=== PATIENT | female | born 1960 | race Caucasian/White ===

== ENCOUNTER 2017-06-25 10:51 | Emergency (ER) | payer OTHER, SELFPAY ==
[~2017-06-25] VITALS: Ht 177.8 cm; Wt 81.6 kg
[2017-06-25] MEDS ORDERED: DECADRON IH STA (11:24)
[2017-06-25] MEDS ORDERED: DUONEB 0.5 MG-3 MG/3 ML SOLN IH STA (11:24)
[2017-06-25] MEDS ORDERED: SOLU-MEDROL IM STA (11:24)
[2017-06-25] MEDS ORDERED: DUONEB 0.5 MG-3 MG/3 ML SOLN IH ONE (11:26)
[2017-06-25] MEDS ORDERED: DECADRON ONE (11:26)
--- NOTE | 2017-06-25 11:27 | ER.PDOC ---
General Chief Complaint: Cough/Congestion Stated Complaint: COUGH,CONGESTION,EAR ACHE,FEVER,DIARREAH Time seen by MD: 11:26 Source: patient Exam Limitations: no limitations History of Present Illness Initial Comments Cough, congestion and earache for 1 week Timing/Duration: gradual Severity: moderate Associated Symptoms: earache, runny nose, cough Allergies: Coded Allergies: Penicillins (Verified Allergy, Unknown, Unknown, 06/25/17) aspirin (Verified Allergy, Unknown, unknown, 06/25/17) Constitutional: no symptoms reported EENTM: see HPI Respiratory: see HPI Cardiovascular: no symptoms reported Gastrointestinal: diarrhea Genitourinary: no symptoms reported All Other Systems: Reviewed and Negative Past Medical History Medical History: no pertinent history Surgical History: appendectomy LMP (females 10-50): postmenopause Social History Smoking: non-smoker Alcohol Use: none Drug Use: none Physical Exam General Appearance: alert, no distress Ear: ear nml Nose: rhinorrhea Neck: nml inspection, supple Respiratory: no resp.distress, breath sounds nml Abdomen: non-tender, no organomegaly CVS: reg rate & rhythm, heart sounds nml Extremities: non-tender, nml ROM, no pedal edema NEURO/PSYCH: oriented x 3, CN's nml as tested, motor nml, sensation nml, mood/ affect nml Results/Orders Results/Orders Laboratory Tests Test 06/25/17 11:33 White Blood Count 8.3 10^3/uL (4.5-11.0) Red Blood Count 4.66 10^6/uL (4.00-5.20) Hemoglobin 13.2 g/dL (12.0-15.0) Hematocrit 40.4 % (36.0-46.0) Mean Corpuscular Volume 86.7 fL (78-100) Mean Corpuscular Hemoglobin 28.3 pg (26-34) Mean Corpuscular Hemoglobin Concent 32.7 g/dL (33-37) Red Cell Distribution Width 13.8 % (11.5-14.5) Platelet Count 124 10^3/uL (150-400) Mean Platelet Volume 10.2 fL (7.8-11.0) Neutrophils (%) (Auto) 77.4 % (41.0-85.0) Lymphocytes (%) (Auto) 13.7 % (24.0-44.0) Monocytes (%) (Auto) 8.6 % (5.0-12.0) Neutrophils # (Auto) 6.5 10^3/uL (1.8-7.7) Lymphocytes # (Auto) 1.1 10^3/uL (1.0-4.8) Monocytes # (Auto) 0.7 10^3/uL (0.3-0.8) Absolute Immature Granulocyte (auto 0.02 10^3 u/L (0-2) Eosinophils % 0.0 % (0.0-5.0) Basophils % 0.1 % (0.0-0.2) Basophils # 0.0 10^3/uL (0.0-0.1) Eosinophil Count 0.0 10^3/uL (0.0-0.2) Sodium Level 139 mmol/L (132-145) Potassium Level 3.6 mmol/L (3.6-5.2) Chloride Level 100.0 mmol/L (96-109) Carbon Dioxide Level 30.7 mmol/L (20.0-32) Anion Gap 11.9 Blood Urea Nitrogen 18 mg/dL (7-18) Creatinine 0.87 mg/dL (0.59-1.40) Estimated GFR () 81.2 (>/=60) BUN/Creatinine Ratio 20.0 Glucose Level 101 mg/dL (70-110) Calcium Level 8.9 mg/dL (8.4-10.5) Total Bilirubin 0.5 mg/dL (0.2-1.0) Aspartate Amino Transf (AST/SGOT) 30 U/L (0-35) Alanine Aminotransferase (ALT/SGPT) 34 U/L (12-78) Alkaline Phosphatase 100 U/L (50-136) Total Creatine Kinase 284 U/L (26-192) Creatine Kinase MB 0.4 ng/mL (0.5-3.6) Troponin I < 0.02 ng/mL (0.00-0.05) Total Protein 7.2 g/dL (6.4-8.2) Albumin 3.1 g/dL (3.4-5.0) Globulin 4.1 Percent Immature Gran (Cell Imm) 0.20 % (0.00-0.50) Administered Medications Medications (Trade) Dose Ordered Sig/Carole Route PRN Reason Start Time Stop Time Status Last Admin Dose Admin Methylprednisolone Sodium Succinate (Solu-Medrol) 125 mg STAT STAT IM 06/25/17 11:24 06/25/17 11:26 DC 06/25/17 11:30 Albuterol/ Ipratropium (Duoneb 0.5 Mg-3 Mg/3 ml Soln) 3 ml STAT STAT IH 06/25/17 11:24 06/25/17 11:26 DC 06/25/17 11:35 Dexamethasone Sodium Phosphate (Decadron) 4 mg STAT STAT IH 06/25/17 11:24 06/25/17 11:26 DC 06/25/17 11:35 Progress Progress Feels better EKG/XRAY/CT/US EKG Comments: sinus tachycardia XRAY: chest (No acute disease) Departure Time of Disposition: 12:09 Disposition: 01 HOME, SELF-CARE Impression: Primary Impression: Acute bronchitis Qualified Codes: J20.9 - Acute bronchitis, unspecified Condition: Stable Referrals: PCP,UNKNOWN (PCP) PRIMARY CARE PROVIDER Additional Instructions: Z pack Medrol dose pack Albuterol HFA Mucinex DM OTC as directed F/U with your PCP in 2-3 days Duration or Time Spent with Pa: 40 mins DIO OCONNOR MD Jun 25, 2017 11:27
[2017-06-25 11:37] LABS: BASOPHIL % 0.1 % (0.0-0.2); HEMOGLOBIN 13.2 g/dL (12.0-15.0); LYMPHOCYTES # 1.1 10^3/uL (1.0-4.8); LYMPHOCYTES % 13.7 % (24.0-44.0); MEAN CELL HGB 28.3 pg (26-34); MEAN CELL HGB CONCENTRATION 32.7 g/dL (33-37); MEAN CORP VOLUME 86.7 fL (78-100); MEAN PLATELET VOLUME 10.2 fL (7.8-11.0); MONOCYTES # 0.7 10^3/uL (0.3-0.8); MONOCYTES % 8.6 % (5.0-12.0); NEUTROPHIL # 6.5 10^3/uL (1.8-7.7); NEUTROPHILS % 77.4 % (41.0-85.0); RED CELL DISTRIBUTION WIDTH 13.8 % (11.5-14.5); WHITE BLOOD CELL 8.3 10^3/uL (4.5-11.0)
[2017-06-25] MEDS ORDERED: SOLU-MEDROL ONE (11:37)
--- NOTE | 2017-06-25 11:38 | PCM.EKG ---
[facility] Test Date: 2017-06-25 Test Time: 11:32:13 Pat Name: NOE WATERS [facility]: [id number] Room: Gender: F Vascular Neurologist: MILO : 1960 Requested By: DIO OCONNOR Order Number: [id number] Reading MD: Dio OCONNOR Measurements Intervals [place] Rate: 102 P: 84 FL: 126 QRS: 81 QRSD: 86 T: 81 QT: 342 QTc: 445 Interpretive Statements Sinus tachycardia Otherwise normal ECG No previous ECG available for comparison Electronically Signed On 06-27-2017 18:07:41 [employer] by Dio OCONNOR Please click the below link to view image of tracing.
--- NOTE | 2017-06-25 11:49 | DIREP ---
PROCEDURE:CHEST 1 VIEW COMPARISON:None. INDICATIONS:Cough FINDINGS: LUNGS/PLEURA:The lung bases are not entirely included in the field of view. Suspected emphysema VASCULATURE:Normal. Unremarkable pulmonary vasculature. CARDIAC:Normal. No cardiac silhouette abnormality or cardiomegaly. MEDIASTINUM:Normal. No visible mass or adenopathy. BONES:Normal. No fracture or visible bony lesion. OTHER:Negative. CONCLUSION:Suspected emphysema. No active cardiopulmonary disease process Dictated by: Ap Brice M.D. on 06/25/2017 at 11:47 AM
[2017-06-25 12:02] LABS: ALANINE AMINOTRANSFERASE(ML) 34 U/L (12-78); ALKALINE PHOSPHATASE 100 U/L (50-136); ASPARTATE AMINO TRANSFERASE 30 U/L (0-35); CALCIUM 8.9 mg/dL (8.4-10.5); CARBON DIOXIDE 30.7 mmol/L (20.0-32); GLUCOSE 101 mg/dL (70-110)
[2017-06-25 12:27] VITALS: BP 111/65
== END 2017-06-25 12:23 | disposition home or self-care (01) ==
LOC: ER 10:51
DX: J20.9 Acute bronchitis, unspecified (principal); H92.09 Otalgia, unspecified ear; R19.7 Diarrhea, unspecified; Z88.0 Allergy status to penicillin; Z88.6 Allergy status to analgesic agent
CPT/HCPCS: 36415; 71045; 80053; 82550; 82553; 84484; 85025; 93005; 94640; 96372; 99285; J1100; J2930; J7620